=== PATIENT | female | born 1945 | race Caucasian/White ===

== ENCOUNTER → 2018-03-04 10:34 | Outpatient (CLI) | payer MEDICARE, MEDICAID, SELFPAY ==
--- NOTE | 2018-03-04 10:42 | XR_ITS ---
XR chest 2V COMPARISON: PA and lateral chest 01/06/2017 HISTORY: Cough, generalized weakness TECHNIQUE: PA and lateral chest FINDINGS: Mild emphysematous changes seen with mild hyperinflation the lung stafford. There is no infiltrate and is no pleural fluid. Cardiac size is normal and the vascularity is normal. Again noted is a large calcified right pretracheal node. 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
[2018-03-04 11:39] LABS: Alanine Aminotransferase 23 U/L (12-78); Albumin Level 3.4 gm/dL (3.4-5.0); Albumin/Globulin Ratio 0.8 (1.1-1.8); Alkaline Phosphatase 110 U/L (46-116); Anion Gap 14.8 mEq/L (5-15); Aspartate Amino Transferase 23 U/L (15-37); Bilirubin,Total 0.6 mg/dL (0.2-1.0); Blood Urea Nitrogen 23 mg/dL (7-18); Calcium 9.4 mg/dL (8.5-10.1); Carbon Dioxide 25 mmol/L (21.0-32.0); Chloride 104 mmol/L (98-107); Creatinine,Serum 1.38 mg/dL (0.55-1.02); Estimated Glomerular Filt Rate 38 ml/min (>60); GFR (African American) 45 ML/MIN (>60); Globulin 4.1 gm/dl (1.3-3.2); Glucose 125 mg/dL (74-106); Potassium 3.8 mmoL/L (3.5-5.1); Sodium 140 mmol/L (136-145); Total Protein,Serum 7.5 gm/dL (6.4-8.2)
[2018-03-04 11:53] LABS: Basophils % 0.6 % (0.1-2.0); Eosinophils % 0.6 % (0.1-12.0); Lymphocytes # 1.1 K/mm3 (0.7-4.5); Lymphocytes % 18.1 K/mm3 (10-50); Mean Corpuscular HGB Conc 30.2 g/dL (31.8-35.4); Mean Corpuscular Hemoglobin 22.2 pg (27.0-31.2); Mean Corpuscular Volume 73.5 fl (81-99); Mean Platelet Volume 8.9 fl (7.4-10.4); Monocytes # 0.4 K/mm3 (0.1-1.0); Neutrophils # 4.3 K/mm3 (1.8-7.8); Neutrophils % 73.7 % (37.0-80.0); Platelet Count 282 K/mm3 (142-424); Red Blood Count 4.49 M/mm3 (4.20-5.40); White Blood Count 5.8 K/mm3 (4.8-10.8)
[2018-03-04 18:01] LABS: Reticulocyte % (Auto) 1.5 % (0.9-3.2)
[2018-03-06 09:49] LABS: Iron 19 ug/dL (27-139); UIBC 392 ug/dL (118-369)
[2018-03-08 06:15] LABS: Iron Saturation 5 % (15-55)
== END ==
PROVIDERS: PCP Internal Medicine; Visit Provider Internal Medicine
DX: R05 Cough (principal); D64.9 Anemia, unspecified; R09.89 Other specified symptoms and signs involving the circulatory and respiratory systems; R53.1 Weakness
CPT/HCPCS: 36415; 71046; 80053; 83550; 85025; 85044

== ENCOUNTER → 2018-03-28 11:09 | Outpatient (POV) | payer MEDICARE, SELFPAY | PROVIDERS: Visit Provider Nurse Practitioner Acute Care | DX: Z00.00 Encounter for general adult medical examination without abnormal findings (principal) ==

== ENCOUNTER → 2018-04-02 21:20 | Outpatient (CLI) | payer MEDICARE, SELFPAY ==
[2018-04-20 15:14] LABS: Occult Blood,Stool Negative (Negative)
== END ==
PROVIDERS: Visit Provider Nurse Practitioner Acute Care
DX: D64.9 Anemia, unspecified (principal)
CPT/HCPCS: 82272; G0328

== ENCOUNTER → 2018-04-03 19:00 | Outpatient (CLI) | payer MEDICARE, SELFPAY ==
[2018-04-20 15:14] LABS: Occult Blood,Stool Negative (Negative)
== END ==
PROVIDERS: Visit Provider Nurse Practitioner Acute Care
DX: D64.9 Anemia, unspecified (principal)
CPT/HCPCS: 82272; G0328

== ENCOUNTER → 2018-04-05 08:49 | Outpatient (CLI) | payer MEDICARE, MEDICAID, SELFPAY ==
[2018-04-20 15:14] LABS: Occult Blood,Stool Negative (Negative)
== END ==
PROVIDERS: Visit Provider Nurse Practitioner Acute Care
DX: D64.9 Anemia, unspecified (principal)
CPT/HCPCS: 82272; G0328

== ENCOUNTER → 2018-05-30 10:26 | Outpatient (CLI) | payer MEDICARE, MEDICAID, SELFPAY ==
[2018-05-30 10:52] LABS: Basophils # 0.1 K/mm3 (0-0.2); Basophils % 1.2 % (0.1-2.0); Eosinophils # 0.1 K/mm3 (0.0-0.4); Eosinophils % 1.5 % (0.1-12.0); Hematocrit 39.8 % (37.0-47.0); Hemoglobin 11.9 g/dL (12.2-16.2); Lymphocytes # 2.2 K/mm3 (0.7-4.5); Lymphocytes % 38.2 K/mm3 (10-50); Mean Corpuscular HGB Conc 29.8 g/dL (31.8-35.4); Mean Corpuscular Hemoglobin 26.1 pg (27.0-31.2); Mean Corpuscular Volume 87.8 fl (81-99); Mean Platelet Volume 9.5 fl (7.4-10.4); Monocytes # 0.4 K/mm3 (0.1-1.0); Monocytes % 7.3 % (1.7-9.3); Neutrophils % 51.8 % (37.0-80.0); Platelet Count 199 K/mm3 (142-424); Red Blood Count 4.54 M/mm3 (4.20-5.40); Red Cell Distribution Width 21.9 % (11.5-17.5); Reticulocyte % (Auto) 1.2 % (0.9-3.2); White Blood Count 5.9 K/mm3 (4.8-10.8)
== END ==
PROVIDERS: Visit Provider Internal Medicine
DX: D50.9 Iron deficiency anemia, unspecified (principal); I10 Essential (primary) hypertension; I25.10 Atherosclerotic heart disease of native coronary artery without angina pectoris
CPT/HCPCS: 36415; 85025; 85044

== ENCOUNTER → 2018-08-30 11:09 | Outpatient (CLI) | payer MEDICARE, MEDICAID, SELFPAY ==
[2018-08-30 12:04] LABS: Basophils # 0.1 K/mm3 (0-0.2); Eosinophils # 0.2 K/mm3 (0.0-0.4); Eosinophils % 2.6 % (0.1-12.0); Lymphocytes # 2.3 K/mm3 (0.7-4.5); Lymphocytes % 38.3 K/mm3 (10-50); Mean Corpuscular Hemoglobin 30.6 pg (27.0-31.2); Mean Corpuscular Volume 98.5 fl (81-99); Mean Platelet Volume 9.2 fl (7.4-10.4); Monocytes # 0.4 K/mm3 (0.1-1.0); Monocytes % 5.8 % (1.7-9.3); Neutrophils # 3.1 K/mm3 (1.8-7.8); Neutrophils % 52.2 % (37.0-80.0); Platelet Count 204 K/mm3 (142-424); Red Blood Count 4.57 M/mm3 (4.20-5.40)
[2018-08-30 12:25] LABS: Alanine Aminotransferase 22 U/L (12-78); Albumin Level 3.6 gm/dL (3.4-5.0); Albumin/Globulin Ratio 1.3 (1.1-1.8); Alkaline Phosphatase 100 U/L (46-116); Anion Gap 12.3 mEq/L (5-15); Aspartate Amino Transferase 18 U/L (15-37); Bilirubin,Total 0.6 mg/dL (0.2-1.0); Blood Urea Nitrogen 25 mg/dL (7-18); Carbon Dioxide 28 mmol/L (21.0-32.0); Chloride 105 mmol/L (98-107); Chol/HDL Ratio 1.9 (1-3.5); Cholesterol 127 mg/dL (140-200); Creatinine,Serum 1.14 mg/dL (0.55-1.02); Estimated Glomerular Filt Rate 47 ml/min (>60); GFR (African American) 57 ML/MIN (>60); Globulin 2.8 gm/dl (1.3-3.2); Glucose 104 mg/dL (74-106); HDL Cholesterol 67 mg/dL (29-89); LDL Cholesterol 40 mg/dL (0-130); Potassium 4.3 mmoL/L (3.5-5.1); Sodium 141 mmol/L (136-145); Total Protein,Serum 6.4 gm/dL (6.4-8.2); Triglycerides 101 mg/dL (30-200); VLDL Cholesterol 20 mg/dL (0-40)
== END ==
PROVIDERS: PCP Internal Medicine; Visit Provider Internal Medicine
DX: D50.9 Iron deficiency anemia, unspecified (principal); I25.10 Atherosclerotic heart disease of native coronary artery without angina pectoris; I73.9 Peripheral vascular disease, unspecified
CPT/HCPCS: 36415; 80053; 80061; 85025

== ENCOUNTER → 2018-12-07 11:22 | Outpatient (CLI) | payer MEDICARE, MEDICAID, SELFPAY ==
[2018-12-07 12:12] LABS: Basophils # 0.1 K/mm3 (0-0.2); Basophils % 0.8 % (0.1-2.0); Eosinophils # 0.1 K/mm3 (0.0-0.4); Eosinophils % 1.2 % (0.1-12.0); Hematocrit 41.9 % (37.0-47.0); Hemoglobin 13.2 g/dL (12.2-16.2); Lymphocytes # 2.5 K/mm3 (0.7-4.5); Mean Corpuscular HGB Conc 31.4 g/dL (31.8-35.4); Mean Corpuscular Hemoglobin 32.6 pg (27.0-31.2); Mean Corpuscular Volume 103.7 fl (81-99); Mean Platelet Volume 9.4 fl (7.4-10.4); Monocytes # 0.4 K/mm3 (0.1-1.0); Monocytes % 4.6 % (1.7-9.3); Neutrophils # 4.6 K/mm3 (1.8-7.8); Neutrophils % 60.5 % (37.0-80.0); Platelet Count 224 K/mm3 (142-424); Red Blood Count 4.04 M/mm3 (4.20-5.40); White Blood Count 7.7 K/mm3 (4.8-10.8)
[2018-12-07 12:21] LABS: Blood Urea Nitrogen 45 mg/dL (7-18); Carbon Dioxide 27 mmol/L (21.0-32.0); Chloride 102 mmol/L (98-107); Creatinine,Serum 1.63 mg/dL (0.55-1.02); Sodium 139 mmol/L (136-145)
[2018-12-07 12:22] LABS: Estimated Glomerular Filt Rate 31 ml/min (>60); GFR (African American) 37 ML/MIN (>60); Glucose 110 mg/dL (74-106)
== END ==
PROVIDERS: Visit Provider Internal Medicine
DX: D50.9 Iron deficiency anemia, unspecified (principal); K92.1 Melena
CPT/HCPCS: 36415; 80048; 85025

== ENCOUNTER → 2018-12-30 11:12 | Outpatient (CLI) | payer MEDICARE, MEDICAID, SELFPAY ==
[2018-12-30 12:02] LABS: Basophils # 0.1 K/mm3 (0-0.2); Basophils % 1.4 % (0.1-2.0); Eosinophils # 0.1 K/mm3 (0.0-0.4); Eosinophils % 2.6 % (0.1-12.0); Hematocrit 44.6 % (37.0-47.0); Hemoglobin 14.3 g/dL (12.2-16.2); Lymphocytes # 1.8 K/mm3 (0.7-4.5); Lymphocytes % 33.5 % (10-50); Mean Corpuscular HGB Conc 32.1 g/dL (31.8-35.4); Mean Corpuscular Hemoglobin 32.7 pg (27.0-31.2); Mean Corpuscular Volume 101.9 fl (81-99); Monocytes # 0.3 K/mm3 (0.1-1.0); Monocytes % 5.8 % (1.7-9.3); Neutrophils # 3.1 K/mm3 (1.8-7.8); Neutrophils % 56.7 % (37.0-80.0); Platelet Count 209 K/mm3 (142-424); Red Blood Count 4.38 M/mm3 (4.20-5.40); Reticulocyte % (Auto) 0.4 % (0.9-3.2); White Blood Count 5.4 K/mm3 (4.8-10.8)
[2018-12-30 12:45] LABS: Alanine Aminotransferase 21 U/L (12-78); Albumin Level 3.8 gm/dL (3.4-5.0); Albumin/Globulin Ratio 1.2 (1.1-1.8); Alkaline Phosphatase 100 U/L (46-116); Anion Gap 13.2 mEq/L (5-15); Aspartate Amino Transferase 15 U/L (15-37); Bilirubin,Total 0.5 mg/dL (0.2-1.0); Blood Urea Nitrogen 21 mg/dL (7-18); Calcium 9.2 mg/dL (8.5-10.1); Carbon Dioxide 29 mmol/L (21.0-32.0); Chloride 105 mmol/L (98-107); Creatinine,Serum 1.18 mg/dL (0.55-1.02); Estimated Glomerular Filt Rate 45 ml/min (>60); GFR (African American) 54 ML/MIN (>60); Globulin 3.2 gm/dl (1.3-3.2); Glucose 106 mg/dL (74-106); Potassium 4.2 mmoL/L (3.5-5.1); Sodium 143 mmol/L (136-145)
[2019-01-02 08:36] LABS: Folate >20.0 ng/mL (>3.0)
[2019-01-02 08:38] LABS: Vitamin B12 468 pg/mL (232-1245)
== END ==
PROVIDERS: Visit Provider Internal Medicine
DX: D50.9 Iron deficiency anemia, unspecified (principal); D75.89 Other specified diseases of blood and blood-forming organs
CPT/HCPCS: 36415; 80053; 82607; 82746; 85025; 85044

== ENCOUNTER → 2020-06-05 08:48 | Outpatient (CLI) | payer MEDICARE, OTHER, SELFPAY ==
--- NOTE | 2020-06-05 09:03 | US_ITS ---
PROCEDURE: US ABDOMEN LIMITED CLINICAL INDICATION: RUQ PAIN COMPARISON: ABDPELW/O CT ABD PELVIS W/O CONTRAST from 11/24/2015 FINDINGS: PANCREAS: Unremarkable. No obvious mass or abnormal fluid collection. No ductal dilatation LIVER: No focal liver lesions demonstrated. Homogeneous echogenicity. No intrahepatic biliary ductal dilatation evident. There is appropriate direction of blood flow within a non dilated portal vein RIGHT KIDNEY: There is atrophy of the right kidney. No hydronephrosis. There is a 7 mm cyst along the upper pole of the right kidney GALLBLADDER: Status post cholecystectomy. Common bile duct is normal at 5 mm. IMPRESSION: Prior cholecystectomy. Atrophy of the right kidney Dictated by: Alfred Bailey MD 06/05/2020 14:24 Electronically signed by Alfred Bailey MD in [place] 06/05/2020 14:24
== END ==
PROVIDERS: PCP Internal Medicine; Visit Provider Internal Medicine
DX: R10.11 Right upper quadrant pain (principal)
CPT/HCPCS: 76705

== ENCOUNTER 2020-08-29 13:13 | Inpatient (IN) | payer MEDICARE, MEDICAID, SELFPAY ==
[2020-08-29] VITALS (7 sets, daily range): BP systolic 105–150; BP diastolic 46–70; PULSE 52–64; RESP 16–18; TEMP 36.9; O2SAT 91–98; BMI 24.3
--- NOTE | 2020-08-29 13:35 | PC.NURSE ---
unable to obtain pedal pulse with palp or doppler
--- NOTE | 2020-08-29 13:47 | CT_ITS ---
Procedure: CT ANGIO LE BI CLINICAL HISTORY: cold foot, hx of fem artery graft COMPARISON: No exams were available for comparison TECHNIQUE: IV Contrast: 120 ml Optiray 350 Axial images obtained with sagittal and coronal reformats. All CT scans at the facility use one or more dose reduction, viz: automated exposure control, ma/kV adjustment per patient size (including targeted exams where dose is matched to indication, i.e. head), or iterative reconstruction technique. FINDINGS: Abdominal aorta: Extensive atheromatous changes are present involving the abdominal aorta with irregular calcific plaque throughout and also with with involvement of the iliac vessels. 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 There is severe atheromatous change the left renal artery with 50 percent stenosis of the proximal mid aspect. There is occlusion of the right renal artery proximally with an atrophic right kidney. Dilatation of the abdominal aorta at 2.1 cm. Severe atheromatous changes involve the iliac vessels on both sides with approximately 60 stenosis of the mid aspect of the right common iliac, 40 stenosis of the proximal right external iliac artery,. There is a right fem-pop graft. The graft is occluded proximally within the right groin region. The profundus femora is patent. The lummi SFA is occluded as well on the right. The graft does not reconstitute. The trifurcation vessels in the calf reconstitute proximally and are very small with extensive calcific plaque. The peroneal artery does appear to be reconstitute distally within the right calf. Extensive atherosclerotic calcification is noted in the left iliac vessels and in the left SFA. There is long segment moderate narrowing involving the mid SFA on the left of 50 percent. Segmental areas of stenosis is present involving the course of the SFA. 40 percent stenosis involves the mid popliteal artery on the left. The peroneal and posterior tibial arteries are patent to the ankle on the left. Incidental findings include prior cholecystectomy with biliary ectasia, atrophic right kidney, left renal cyst, mild ductal dilatation of the pancreas with moderate dilatation of the biliary tree. MRCP may provide further evaluation if clinically warranted. There is a mild amount of retained colonic feces. There are degenerative changes of the hips. Degenerative changes noted of the lumbar spine. There are cystic changes in the subcortical region of the talus medially. IMPRESSION: 1. Occluded right fem-pop graft with occluded lummi right SFA. There is minimal runoff to the right lower extremity with reconstitution of small and atheromatous trifurcation vessels. The peroneal artery appears to be patent to the ankle. Cannot determine patency of other 2 calf vessels due to the extensive calcific plaque. 2. 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 3. Other nonacute findings as described above. Dictated by: Alfred Bailey MD 08/29/2020 15:23 Alfred Bailey MD in [place] 08/29/2020 15:23
[2020-08-29 13:48] LABS: Basophils # 0.1 K/mm3 (0-0.2); Basophils % 1.2 % (0.1-2.0); Eosinophils # 0.2 K/mm3 (0.0-0.4); Eosinophils % 2.5 % (0.1-12.0); Lymphocytes # 1.8 K/mm3 (0.7-4.5); Mean Corpuscular HGB Conc 31.8 g/dL (31.8-35.4); Mean Corpuscular Hemoglobin 31.6 pg (27.0-31.2); Mean Corpuscular Volume 99.4 fl (81-99); Mean Platelet Volume 9.7 fl (7.4-10.4); Monocytes # 0.3 K/mm3 (0.1-1.0); Monocytes % 5.4 % (1.7-9.3); Neutrophils # 3.6 K/mm3 (1.8-7.8); Neutrophils % 60.9 % (37.0-80.0); Platelet Count 223 K/mm3 (142-424); Red Blood Count 4.12 M/mm3 (4.20-5.40); Red Cell Distribution Width 13.9 % (11.5-17.5); White Blood Count 5.9 K/mm3 (4.8-10.8)
--- NOTE | 2020-08-29 13:48 | HMH.EDGENADL ---
ED Disposition Clinical Impression: Obstruction of artery of right lower extremity Disposition: Xfer Other Condition on Discharge: Serious Referrals: Jackson Jimenez [Primary Care Provider] - Forms: Transfer Record - ED Time of Disposition: 15:37 - Critical Care Critical Care Time: Yes Attestation: On 08/29/20, the high probability of a clinically significant, sudden or life threatening deterioration of the following system(s) required my full and direct attention, intervention and personal management. The time I documented below is in addition to time spent performing reported procedures but includes the following listed in this critical care notation. Total Critical Care Time: 40 Vital system(s) involved:: Circulatory Failure, Metabolic Failure My critical care processes included: Assessment & monitoring of V/S, Initial and Re-exams, Coordinating Care, Medication Orders and management, Documentation Medical Decision Making - Medical Records Medical records reviewed: Yes: I reviewed the patient's medical records. - Apolinar Inquiry Pt receiving controlled substance: No Vital Signs: 08/29/20 13:13 08/29/20 16:03 Temperature 98.4 F Temperature Source Oral Pulse Rate [Radial] 64 62 Respiratory Rate 18 Blood Pressure [Right Arm] 140/61 150/65 H Blood Pressure Mean [Right Arm] 87 93 Blood Pressure Source [Right Arm] Automatic Cuff Blood Pressure Position [Right Arm] Sitting Sitting 02 Sat by Pulse Oximetry 98 96 Oxygen Delivery Method Room Air Room Air - Lab Data Lab Results 08/29/20 13:40: WBC 5.9, RBC 4.12 L, Hgb 13.0, Hct 41.0, MCV 99.4 H, MCH 31.6 H, MCHC 31.8, RDW 13.9, Plt Count 223, MPV 9.7, Neut % (Auto) 60.9, Lymph % (Auto) 30.0, [place] % (Auto) 5.4, Eos % (Auto) 2.5, Baso % (Auto) 1.2, Neut # (Auto) 3.6, Lymph # (Auto) 1.8, [place] # (Auto) 0.3, Eos # (Auto) 0.2, Baso # (Auto) 0.1 08/29/20 13:40: PT 11.1, INR 1.00, APTT 25.4 08/29/20 13:40: Sodium 138, Potassium 4.4, Chloride 103, Carbon Dioxide 28, Anion Gap 11.4, BUN 28 H, Creatinine 1.20 H, Estimated Creat Clear 42, Estimated GFR 44 L, Est GFR ( Amer) 53 L, Glucose 109 H, Calcium 9.6, Total Bilirubin 0.7, AST 31, ALT 12, Alkaline Phosphatase 94, Total Protein 6.7, Albumin 4.1, Globulin 2.6, Albumin/Globulin Ratio 1.6 08/29/20 14:15: Lactate 0.6 L Result diagrams: 08/29/20 13:40 08/29/20 13:40 Orders (Tests/Meds): ED MEDICATIONS Generic Name Dose Route Start Last Admin Trade Name Freq PRN Reason Stop Dose Admin Heparin Sodium/Dextrose 500 mls @ 23 mls/hr 08/29/20 15:45 08/29/20 16:16 Heparin 25,000 Units In D5w 500ml Premix IV 09/28/20 15:44 23 mls/hr .[id number] SATNAM Administration 1,150 UNITS/HR Miscellaneous 1 each 08/29/20 15:45 08/29/20 15:59 Heparin Drip Consult * 09/28/20 15:44 1 each CONSULT PHARMACY SATNAM Administration Discontinued Medications Generic Name Dose Route Start Last Admin Trade Name Freq PRN Reason Stop Dose Admin Heparin Sodium (Porcine) 5,000 unit 08/29/20 15:45 08/29/20 15:59 Heparin Sodium 5,000 Unit/Ml Vial IV 08/29/20 15:46 5,000 unit ONCE ONE Administration Hydromorphone HCl 1 mg 08/29/20 19:05 08/29/20 15:15 Hydromorphone 2mg/Ml Syringe IV 08/29/20 19:06 1 mg ONCE ONE Administration Ioversol 120 ml 08/29/20 14:33 08/29/20 14:34 Ioversol-350 (74%) 100ml Vial IV 08/29/20 14:34 120 ml ONCE ONE Administration Protocol Morphine Sulfate 4 mg 08/29/20 13:43 08/29/20 13:44 Morphine 4mg/Ml Syringe IV 08/29/20 13:44 4 mg ONCE ONE Administration Morphine Sulfate 4 mg 08/29/20 19:24 08/29/20 19:25 Morphine 4mg/Ml Syringe IV 08/29/20 19:25 4 mg ONCE ONE Administration Ondansetron HCl 4 mg 08/29/20 13:43 08/29/20 13:44 Ondansetron 4mg/2ml Vial IV 08/29/20 13:44 4 mg ONCE ONE Administration Sodium Chloride 10 ml 08/29/20 14:33 08/29/20 14:34 Sodium Chloride 0.9% 10ml Syr (Rad Only) IV 08/29/20 14:34 10 ml
[2020-08-29 13:56] LABS: Chloride 103 mmol/L (98-107); Potassium 4.4 mmoL/L (3.5-5.1); Sodium 138 mmol/L (136-145)
[2020-08-29 13:58] LABS: Alanine Aminotransferase 12 U/L (12-78); Alkaline Phosphatase 94 U/L (38-126); Anion Gap 11.4 mEq/L (5-15); Aspartate Amino Transferase 31 U/L (14-36); Bilirubin,Total 0.7 mg/dl (0.2-1.3); Blood Urea Nitrogen 28 mg/dl (7-17); Carbon Dioxide 28 mmol/L (22.0-30.0); Creatinine Clearance Estimated 42 mL/min (50-200); Estimated Glomerular Filt Rate 44 ml/min (>60); GFR (African American) 53 ML/MIN (>60)
[2020-08-29 13:59] LABS: Calcium 9.6 mg/dl (8.4-10.2); Glucose 109 mg/dl (74-100); Total Protein,Serum 6.7 g/dl (6.3-8.2)
[2020-08-29 14:16] LABS: Activated Partial Thrombo Time 25.4 seconds (23.6-34.0); Prothrombin Time 11.1 seconds (9.4-11.8)
[2020-08-29 14:30] LABS: Lactic Acid 0.6 mmol/L (0.7-2.1)
--- NOTE | 2020-08-29 15:34 | PC.NURSE ---
Calling [facility]
--- NOTE | 2020-08-29 15:37 | PC.NURSE ---
Transfer center advised she was going to try and get a hold of Dr. Rodriguez
--- NOTE | 2020-08-29 15:45 | PC.NURSE ---
speaking with Dr. Rodriguez
--- NOTE | 2020-08-29 16:04 | PC.NURSE ---
Dr Carrillo at [facility] returned call and is speaking with Dr Jimenes at this time.
--- NOTE | 2020-08-29 16:19 | PC.NURSE ---
Dr ballard accepted. Awaiting bed assignment at this time.
[2020-08-29 16:44] LABS: Albumin Level 4.1 g/dl (3.5-5.0); Albumin/Globulin Ratio 1.6 (1.1-1.8); Globulin 2.6 g/dL (1.3-3.2)
--- NOTE | 2020-08-29 16:48 | PC.NURSE ---
Spoke with transfer center. 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
--- NOTE | 2020-08-29 16:58 | ECG_ITS ---
APPROVED REPORT Exam: Resting ECG HR:63 bpm ECG Measurements Heart Rate 63 AXES AK 184 P 60 QRSd 82 QRS 46 QT 426 T 67 QTc 435 Conclusion Sinus rhythm with premature atrial complexes with aberrant conduction Otherwise normal ECG Electronically signed by : Marshall Mustafa, 08/30/2020 13:43:22
--- NOTE | 2020-08-29 17:48 | PC.NURSE ---
[facility] CALLED AND REPORTED THAT A BED ASSIGNMENT IS NOT GOING TO BE POSSIBLE TONIGHT AND THAT WE MAY WANT TO TRY A DIFFERENT HOSPITAL FOR TRANSFER
--- NOTE | 2020-08-29 22:16 | PC.NURSE ---
[facility] called and still dont have a bed assignment
--- NOTE | 2020-08-29 22:48 | PC.NURSE ---
This RN spoke with Balaji from pharmacy regarding Heparin gtt. APTT was 150.0. Orders given to hold gtt for 2 hours, then restart at 1000 units/hr. Redraw APTT 6 hours from restart. Heparin gtt held at 2243
[2020-08-30 00:44] LABS: Coronavirus 19 IgG Antibody Negative (Negative); Coronavirus 19 IgM Antibody Negative (Negative)
--- NOTE | 2020-08-30 00:46 | PC.NURSE ---
Report called to CHRISTIN Parker at this time.
--- NOTE | 2020-08-30 00:55 | PC.NURSE ---
Heparin restarted at 0050 @ 1000 units/hr.
[2020-08-30 01:10] VITALS: BP 120/51; PULSE 54; RESP 18; TEMP 36.6; O2SAT 94
--- NOTE | 2020-08-30 01:10 | PC.NURSE ---
patient up to floor via stretcher per CONCRETE POINTER and RN.
--- NOTE | 2020-08-30 01:27 | PC.ADMIT ---
[email or web address] [facility] Admission Note: The patient,Kallie Wheat,74 y/o, was given written information regarding hospital policies, unit procedures and contact persons. Patient's smoking status: Current every day smoker. Vital Signs - 8 hr 08/29/20 20:24 08/29/20 21:17 08/29/20 21:51 Pulse Rate [Radial] 56 L 64 52 L Respiratory Rate 16 18 18 Blood Pressure [Right Arm] 130/70 118/54 L 132/63 02 Sat by Pulse Oximetry 92 L 95 94 L 08/29/20 22:32 08/29/20 22:57 Pulse Rate [Radial] 54 L 54 L Respiratory Rate 18 18 Blood Pressure [Right Arm] 105/46 L 120/51 L 02 Sat by Pulse Oximetry 91 L 94 L
[2020-08-30 01:33] VITALS: BP 128/55; PULSE 59; RESP 18; TEMP 36.6; O2SAT 94; BMI 25.7
--- NOTE | 2020-08-30 04:38 | PC.NURSE ---
REPORTS DIZZINESS. HAS NOT C/O N/V/D OR PAIN THUS FAR. FAINT, THREADY R PEDAL PULSE. BILAT. FEET EQUAL IN STRENGTH AND MOVEMENT. R FOOT/TOES DISCOLORED AND COOL TO TOUCH. [id number]- [facility] CONTACTED THIS RN TO REPORT NO AVAILABLE BEDS AT THIS TIME.
[2020-08-30 05:50] VITALS: BP 119/57; PULSE 58; RESP 14; TEMP 36.4; O2SAT 95
[2020-08-30 06:48] LABS: Basophils # 0.1 K/mm3 (0-0.2); Basophils % 1.2 % (0.1-2.0); Eosinophils # 0.1 K/mm3 (0.0-0.4); Eosinophils % 1.9 % (0.1-12.0); Hematocrit 39.5 % (37.0-47.0); Hemoglobin 11.8 g/dL (12.2-16.2); Lymphocytes # 1.9 K/mm3 (0.7-4.5); Lymphocytes % 26.8 % (10-50); Mean Corpuscular Volume 99.9 fl (81-99); Mean Platelet Volume 9.2 fl (7.4-10.4); Monocytes # 0.4 K/mm3 (0.1-1.0); Monocytes % 5.2 % (1.7-9.3); Neutrophils # 4.7 K/mm3 (1.8-7.8); Platelet Count 206 K/mm3 (142-424); Red Blood Count 3.95 M/mm3 (4.20-5.40); Red Cell Distribution Width 13.8 % (11.5-17.5); White Blood Count 7.2 K/mm3 (4.8-10.8)
[2020-08-30 06:49] LABS: Chloride 103 mmol/L (98-107); Potassium 4.4 mmoL/L (3.5-5.1); Sodium 137 mmol/L (136-145)
[2020-08-30 06:52] LABS: Anion Gap 11.4 mEq/L (5-15); Blood Urea Nitrogen 28 mg/dl (7-17); Carbon Dioxide 27 mmol/L (22.0-30.0); Creatinine Clearance Estimated 43 mL/min (50-200); Estimated Glomerular Filt Rate 44 ml/min (>60); GFR (African American) 53 ML/MIN (>60)
[2020-08-30 06:53] LABS: Calcium 9.1 mg/dl (8.4-10.2); Glucose 102 mg/dl (74-100)
[2020-08-30 08:00] VITALS: BP 109/55; PULSE 74; RESP 18; TEMP 36.4; O2SAT 93
--- NOTE | 2020-08-30 08:09 | HMH.HPDC ---
<Alexa Chavira - Last Filed: 08/30/20 08:15> General - General Admission date:: 08/30/20 Discharge date: 08/30/20 *Admission Date: 08/29/20 *Chief complaint: RLE vascular ischemia *History of present illness: Ms. Wheat is a 74yo female with a history of CAD with history of stent placement, COPD, HTN, HLP, GERD, and PAD with history of right leg femoral popliteal graft procedure with Dr. Rodriguez at [facility] in [place]. She regularly sees Dr. Jimenez for her primary care. She presented to the [facility] ED yesterday for right lower extremity pain which had been progressive over the past week. CTA of the extremity showed an occluded fem pop graft. Consultation was made to Dr. Rodriguez at [facility] and the patient was admitted for observation pending bed availability at [facility]. This morning, she is feeling well. She denies any CP or SOB. She has been voiding qshift. She denies any GI upset and has been NPO overnight. She reports minimal RLE discomfort which has been well-controlled with prn medications and is eased when she is out of bed. She has a bed at [facility] and will be transferred. [facility] History I have reviewed the patient's past medical history: Yes Medical History: Reports:: Carotid Stenosis, Chronic Obstructive Pulmonary Disease (COPD), Coronary Artery Disease, Gastroesophageal Reflux Disease(GERD), Hyperlipidemia, Hypertension, Lung Disease (COPD), Peripheral Vascular Disease Denies:: Cancer, Diabetes Mellitus Type 1, Diabetes Mellitus Type 2, Internal Pacemaker, MRSA, Seizures *Have you ever received a pneumonia vaccine?: Yes *Have you received a flu vaccine this season?: No Other Medical History: Reports: Arthritis Laterality Cases: Right: Other (Vein stripping right thigh,Carotid surgery) Other Surgeries: Yes: Bariatric Surgery, Cardiac Catheterization, Coronary Stent, Hysterectomy-Total, Other. No: Pacemaker Amputation: No - *Social History Last grade of school completed: 7th or 8th Smoking Status: Current every day smoker Tobacco Type: cigarettes # Packs/Day (cigarettes): 1 Alcohol Intake: never *Occupational Status:: retired Housing: house Household Members: children *Travel in the last 8 weeks: None Family Hx:: Cancer Review of Systems - Constitutional Denies fatigue, Denies fever(s), Denies headache(s), Denies weakness - Eyes Denies change in vision - ENT Denies headache(s), Denies nasal congestion, Denies nasal discharge, Denies sore throat - *Cardiovascular Denies chest pain, Denies chest pain with activity, Denies shortness of breath, Denies shortness of breath with activity, Denies lightheadedness - *Respiratory Reports cough, Denies shortness of breath - *Gastrointestinal Denies abdominal pain, Denies change in bowel habits, Denies loose stools, Denies nausea, Denies vomiting - *Genitourinary Denies difficulty urinating - *Musculoskeletal Reports radiating pain into limb Comments: RLE pain x 1 week, eased with ambulation - *Neurologic Reports numbness (toes), Denies headache(s), Denies weakness - Hematologic/Lymphatic Denies enlarged lymph nodes Exam Vital signs and Labs for Last 24 Hours: Temp Pulse Resp BP Pulse Ox 97.6 F 58 L 14 119/57 L 95 08/30/20 05:50 08/30/20 05:50 08/30/20 05:50 08/30/20 05:50 08/30/20 05:50 Laboratory Results - last 24 hr 08/29/20 13:40: WBC 5.9, RBC 4.12 L, Hgb 13.0, Hct 41.0, MCV 99.4 H, MCH 31.6 H, MCHC 31.8, RDW 13.9, Plt Count 223, MPV 9.7, Neut % (Auto) 60.9, Lymph % (Auto) 30.0, [place] % (Auto) 5.4, Eos % (Auto) 2.5, Baso % (Auto) 1.2, Neut # (Auto) 3.6, Lymph # (Auto) 1.8, [place] # (Auto) 0.3, Eos # (Auto) 0.2, Baso # (Auto) 0.1 08/29/20 13:40: PT 11.1, INR 1.00, APTT 25.4 08/29/20 13:40: Sodium 138, Potassium 4.4, Chloride 103, Carbon Dioxide 28, Anion Gap 11.4, BUN 28 H, Creatinine 1.20 H, Estimated Creat Clear 42, Estimated GFR 44 L, Est GFR ( Amer) 53 L, Glucose 109 H, Calcium 9.6, Total Bilirubin 0.7, AST 31, ALT 12, Alkaline Phosphatase
--- NOTE | 2020-08-30 09:02 | PC.NURSE ---
PT'S PHARMACY CONTACTED. ULICES GALE REC COMPLETED AND INFORMATION FAXED TO ST TRAE GODOY RN, . REPORT CALLED TO CHRISTIN GODOY AT [phone]
--- NOTE | 2020-08-30 13:16 | HMH.PHAHEP ---
[facility] Pharmacy Heparin Dosing - Demographic Data Admission date:: 08/29/20 Date: 08/30/20 Time: 13:16 Allergies/Adverse Reactions: Allergies Allergy/AdvReac Type Severity Reaction Status Date / Time No Known Allergies Allergy Verified 05/09/18 12:00 Height: 1.6 m Weight: 65.7 kg - Indication Medication therapy:: Heparin Patient Problems: Current Active Problems Obstruction of artery of right lower extremity (Acute) HTN (hypertension) (Acute) GERD (gastroesophageal reflux disease) (Acute) Hyperlipidemia (Acute) CVA?: No Bleeding problem?: No Kidney disease?: No HI?: No Desired PTT range:: 50-70 seconds - Labs Anticoagulation Lab Results:: 08/29/20 08/30/20 13:40 06:05 Hgb 13.0 11.8 L Hct 41.0 39.5 Plt Count 223 206 - Monitoring Dose Monitor 1 Date: 08/29/20 Time: 13:40 PTT Result:: 25.4 Infusion Rate:: 1150 UNITS/HR = 23 ML/HR Comment:: BASELINE PTT 5,000 UNIT BOLUS GIVEN [id number] Dose Monitor 2 Date: 08/30/20 Time: 21:40 PTT Result:: 150.0 Infusion Rate:: 20 ML/HR Dose Monitor 3 Date: 08/30/20 Time: 06:05 PTT Result:: 76.0 Infusion Rate:: 19 ML/HR Comment:: [id number] - Core Measures Is INR > or = 2 at discharge?: No Most Recent Labs:: Laboratory Results - last 24 hr 08/29/20 13:40: WBC 5.9, RBC 4.12 L, Hgb 13.0, Hct 41.0, MCV 99.4 H, MCH 31.6 H, MCHC 31.8, RDW 13.9, Plt Count 223, MPV 9.7, Neut % (Auto) 60.9, Lymph % (Auto) 30.0, [place] % (Auto) 5.4, Eos % (Auto) 2.5, Baso % (Auto) 1.2, Neut # (Auto) 3.6, Lymph # (Auto) 1.8, [place] # (Auto) 0.3, Eos # (Auto) 0.2, Baso # (Auto) 0.1 08/29/20 13:40: PT 11.1, INR 1.00, APTT 25.4 08/29/20 13:40: Sodium 138, Potassium 4.4, Chloride 103, Carbon Dioxide 28, Anion Gap 11.4, BUN 28 H, Creatinine 1.20 H, Estimated Creat Clear 42, Estimated GFR 44 L, Est GFR ( Amer) 53 L, Glucose 109 H, Calcium 9.6, Total Bilirubin 0.7, AST 31, ALT 12, Alkaline Phosphatase 94, Total Protein 6.7, Albumin 4.1, Globulin 2.6, Albumin/Globulin Ratio 1.6 08/29/20 14:15: Lactate 0.6 L 08/29/20 21:40: APTT 150.0 H* D 08/30/20 00:00: SARS-CoV-2 IgG Ab (Rapid) Negative, SARS-CoV-2 IgM Ab (Rapid) Negative 08/30/20 06:05: WBC 7.2, RBC 3.95 L, Hgb 11.8 L, Hct 39.5, MCV 99.9 H, MCH 30.0, MCHC 30.0 L, RDW 13.8, Plt Count 206, MPV 9.2, Neut % (Auto) 65.0, Lymph % (Auto) 26.8, [place] % (Auto) 5.2, Eos % (Auto) 1.9, Baso % (Auto) 1.2, Neut # (Auto) 4.7, Lymph # (Auto) 1.9, [place] # (Auto) 0.4, Eos # (Auto) 0.1, Baso # (Auto) 0.1 08/30/20 06:05: Sodium 137, Potassium 4.4, Chloride 103, Carbon Dioxide 27, Anion Gap 11.4, BUN 28 H, Creatinine 1.20 H, Estimated Creat Clear 43, Estimated GFR 44 L, Est GFR ( Amer) 53 L, Glucose 102 H, Calcium 9.1 08/30/20 06:05: APTT 76.0 H* D If INR was < than 2.0 why was therapy stopped?: TRANSFERRED TO [facility] Were Heparin and Warfarin started on the same day?: No If not, why?: TRANSFERRED TO [facility], STILL ON HEPARIN DRIP
== END 2020-08-30 09:35 | disposition short-term general hospital (02) | DRG 300 ==
LOC: ER 17:03 → 2ND 08-30 01:54
PROVIDERS: Emergency Medicine; Admitting Provider Family Medicine; Emergency Provider Emergency Medicine; PCP Internal Medicine; Visit Provider Family Medicine
DX: I70.721 Atherosclerosis of other type of bypass graft(s) of the extremities with rest pain, right leg (principal); I70.92 Chronic total occlusion of artery of the extremities; Z72.0 Tobacco use; I10 Essential (primary) hypertension; J44.9 Chronic obstructive pulmonary disease, unspecified; Z79.01 Long term (current) use of anticoagulants; Z79.899 Other long term (current) drug therapy; I77.1 Stricture of artery; I70.1 Atherosclerosis of renal artery; I70.8 Atherosclerosis of other arteries
CPT/HCPCS: 36415; 73701; 80048; 80053; 83605; 85025; 85610; 85730; 86328; 93005; 96365; 96375; 96376; 99284; J2405; Q9967

== ENCOUNTER 2020-09-27 10:41 | Outpatient (CLI) | payer MEDICARE, MEDICAID, SELFPAY ==
[2020-09-27 10:46] VITALS: BMI 25.2
[2020-09-27 11:10] VITALS: BP 105/68; PULSE 86; RESP 18; TEMP 37.3
[2020-09-27 11:15] LABS: Basophils # 0.1 K/mm3 (0-0.2); Basophils % 0.9 % (0.1-2.0); Eosinophils # 0.1 K/mm3 (0.0-0.4); Eosinophils % 0.6 % (0.1-12.0); Hematocrit 29.1 % (37.0-47.0); Hemoglobin 8.9 g/dL (12.2-16.2); Lymphocytes # 1.5 K/mm3 (0.7-4.5); Lymphocytes % 16.6 % (10-50); Mean Corpuscular HGB Conc 30.7 g/dL (31.8-35.4); Mean Corpuscular Volume 97.7 fl (81-99); Mean Platelet Volume 8.5 fl (7.4-10.4); Monocytes # 0.5 K/mm3 (0.1-1.0); Monocytes % 5.4 % (1.7-9.3); Neutrophils % 76.4 % (37.0-80.0); Platelet Count 514 K/mm3 (142-424); Red Blood Count 2.98 M/mm3 (4.20-5.40); Red Cell Distribution Width 14.8 % (11.5-17.5); White Blood Count 9.1 K/mm3 (4.8-10.8)
[2020-09-27 11:35] LABS: Anion Gap 12.5 mEq/L (5-15); Blood Urea Nitrogen 28 mg/dl (7-17); Calcium 9.5 mg/dl (8.4-10.2); Carbon Dioxide 29 mmol/L (22.0-30.0); Chloride 99 mmol/L (98-107); Creatinine Clearance Estimated 38 mL/min (50-200); Estimated Glomerular Filt Rate 40 ml/min (>60); GFR (African American) 48 ML/MIN (>60); Glucose 115 mg/dl (74-100); Potassium 3.5 mmoL/L (3.5-5.1); Sodium 137 mmol/L (136-145)
[2020-09-27 12:10] VITALS: BP 136/59; PULSE 70; RESP 18
[2020-09-27 13:10] VITALS: BP 127/57; PULSE 70; RESP 18
[2020-09-27 14:10] VITALS: BP 111/51; PULSE 69; RESP 18
[2020-09-27 15:10] VITALS: BP 126/51; PULSE 73; RESP 16
== END 2020-09-27 15:25 | disposition home or self-care (01) ==
LOC: INF 10:42
PROVIDERS: PCP Internal Medicine; Visit Provider Internal Medicine
DX: K52.9 Noninfective gastroenteritis and colitis, unspecified (principal)
CPT/HCPCS: 80048; 85025; 96360; 96361; 96375; J2405

== ENCOUNTER 2020-10-06 17:04 | Inpatient (IN) | payer MEDICARE, MEDICAID, SELFPAY ==
[2020-10-06] VITALS (11 sets, daily range): BP systolic 101–218; BP diastolic 49–89; PULSE 63–86; RESP 16–17; TEMP 36.3–36.7; O2SAT 94–99; BMI 25.2; BMI 24.3
--- NOTE | 2020-10-06 | ECG_ITS ---
APPROVED REPORT Exam: Resting ECG HR:73 bpm ECG Measurements Heart Rate 73 AXES NM 176 P 71 QRSd 84 QRS 45 QT 394 T -7 QTc 434 Conclusion Sinus rhythm with premature atrial complexes with aberrant conduction Nonspecific ST and T wave abnormality Abnormal ECG Electronically signed by : Marshall Mustafa, 10/07/2020 21:08:08
--- NOTE | 2020-10-06 17:22 | HMH.EDGENADL ---
ED Disposition Condition on Discharge: Serious - Critical Care Critical Care Time: No <Yossi Torres - Last Filed: 10/06/20 21:02> <Navi Casanova - Last Filed: 10/06/20 22:13> Clinical Impression: Vomiting and diarrhea Abdominal pain Qualifiers: Abdominal location: upper abdomen, unspecified Qualified Code(s): R10.10 - Upper abdominal pain, unspecified Back pain Qualifiers: Back pain location: low back pain Chronicity: acute Back pain laterality: unspecified Sciatica presence: without sciatica Qualified Code(s): M54.5 - Low back pain Urinary tract infection Qualifiers: Urinary tract infection type: site unspecified Hematuria presence: without hematuria Qualified Code(s): N39.0 - Urinary tract infection, site not specified Disposition: Still a Patient Referrals: Jackson Jimenez [Primary Care Provider] - Attestation: On 10/06/20, the high probability of a clinically significant, sudden or life threatening deterioration of the following system(s) required my full and direct attention, intervention and personal management. The time I documented below is in addition to time spent performing reported procedures but includes the following listed in this critical care notation. Medical Decision Making - Medical Records Medical records reviewed: Yes: I reviewed the patient's medical records. MR Comment: Admitted on 08/30/2020 and transferred the same day to [facility] for arterial ischemia right lower extremity. She had a CT angiogram here which also did show occluded right renal artery, occluded celiac artery, severe stenosis SMA. - Apolinar Inquiry Pt receiving controlled substance: Yes Apolinar was queried for this patient: No Reason not queried -: Emergent pt cond-no time Risks and benefits of using a controlled substance: were not discussed with pt by me - Lab Data Result diagrams: 10/06/20 17:25 10/06/20 17:25 - Physician Consults Physician Consulted: Cedrick Time: 20:45 Reason -: Pt condition Comment/Response: CT scan is pending. I apprised him of the patient's current status and work-up results. Awaiting CT results to see if she has mesenteric ischemia as is suspected from history. <Yossi Torres - Last Filed: 10/06/20 21:02> - Lab Data Result diagrams: 10/06/20 17:25 11/15/20 17:25 <Navi Casanova - Last Filed: 10/06/20 22:13> Vital Signs: 10/06/20 17:07 10/06/20 17:57 10/06/20 19:00 Temperature 97.4 F L Temperature Source Oral Pulse Rate [Left Radial] 69 67 63 Respiratory Rate 16 17 Blood Pressure [Right Arm] 101/51 L 173/63 H 141/51 H Blood Pressure Mean [Right Arm] 67 99 81 Blood Pressure Source [Right Arm] Automatic Cuff Automatic Cuff Automatic Cuff Blood Pressure Position [Right Arm] Sitting Sitting Supine 02 Sat by Pulse Oximetry 96 94 L 98 Oxygen Delivery Method Room Air Room Air Room Air 10/06/20 19:30 10/06/20 20:30 Temperature Temperature Source Pulse Rate [Left Radial] 63 86 Respiratory Rate 17 17 Blood Pressure [Right Arm] 134/49 L 218/89 H Blood Pressure Mean [Right Arm] 77 132 Blood Pressure Source [Right Arm] Automatic Cuff Automatic Cuff Blood Pressure Position [Right Arm] Supine Supine 02 Sat by Pulse Oximetry 97 97 Oxygen Delivery Method Room Air Room Air - Lab Data Lab Results 10/06/20 17:25: WBC 12.5 H, RBC 3.37 L, Hgb 9.4 L, Hct 30.9 L, MCV 91.9, MCH 27.9, MCHC 30.3 L, RDW 15.2, Plt Count 468 H, MPV 9.2, Neut % (Auto) 80.1 H, Lymph % (Auto) 16.3, [place] % (Auto) 3.2, Eos % (Auto) 0.1, Baso % (Auto) 0.4, Neut # (Auto) 10.0 H, Lymph # (Auto) 2.0, [place] # (Auto) 0.4, Eos # (Auto) 0.0, Baso # (Auto) 0.1 10/06/20 17:25: Urine Color Yellow, Urine Appearance Clear, Urine pH 6.0, Ur Specific [place] 1.020, Urine Protein Negative, Urine Glucose (UA) Negative, Urine Ketones Negative, Urine Blood Negative, Urine Nitrate Negative, Urine Bilirubin Negative, Urine Urobilinogen 0.2, Ur Leukocyte Esterase Negative, Urine WBC 20-50 A, Urine Bacteria
[2020-10-06 17:46] LABS: Microscopic,Cath URINE MICROSCOPIC (MICROSCOPIC)
[2020-10-06 17:50] LABS: Basophils # 0.1 K/mm3 (0-0.2); Basophils % 0.4 % (0.1-2.0); Eosinophils % 0.1 % (0.1-12.0); Hematocrit 30.9 % (37.0-47.0); Hemoglobin 9.4 g/dL (12.2-16.2); Lymphocytes % 16.3 % (10-50); Mean Corpuscular HGB Conc 30.3 g/dL (31.8-35.4); Mean Corpuscular Hemoglobin 27.9 pg (27.0-31.2); Mean Corpuscular Volume 91.9 fl (81-99); Mean Platelet Volume 9.2 fl (7.4-10.4); Monocytes # 0.4 K/mm3 (0.1-1.0); Monocytes % 3.2 % (1.7-9.3); Neutrophils % 80.1 % (37.0-80.0); Platelet Count 468 K/mm3 (142-424); Red Blood Count 3.37 M/mm3 (4.20-5.40); Red Cell Distribution Width 15.2 % (11.5-17.5); White Blood Count 12.5 K/mm3 (4.8-10.8)
[2020-10-06 17:56] LABS: Appearance,Urine/Cath CLEAR (Clear); Bilirubin,Cath Negative (Negative); Blood, Urine/Cath Negative (Negative); Color,Urine/Cath YELLOW (Yellow); Glucose,Urine/Cath (UA) Negative (Negative); Ketones,Urine/Cath Negative (Negative); Leukocyte Esterase,Cath Negative (Negative); Nitrate,Cath Negative (Negative); Protein,Urine/Cath Negative (Negative); Urobilinogen,Cath 0.2 EU/dl (0.2)
[2020-10-06 17:58] LABS: Occult Blood,Stool Positive (Negative)
[2020-10-06 18:00] LABS: Bacteria,Urine/Cath 2+ /lpf; WBC,Urine/Cath 20-50 #/hpf (0-3)
[2020-10-06 18:02] LABS: Alanine Aminotransferase 24 U/L (12-78); Albumin Level 3.7 g/dl (3.5-5.0); Albumin/Globulin Ratio 1.4 (1.1-1.8); Alkaline Phosphatase 120 U/L (38-126); Amylase 82 U/L (30-110); Anion Gap 19.2 mEq/L (5-15); Aspartate Amino Transferase 27 U/L (14-36); Bilirubin,Total 0.5 mg/dl (0.2-1.3); Blood Urea Nitrogen 27 mg/dl (7-17); Calcium 9.6 mg/dl (8.4-10.2); Carbon Dioxide 22 mmol/L (22.0-30.0); Chloride 99 mmol/L (98-107); Creatinine Clearance Estimated 33 mL/min (50-200); Estimated Glomerular Filt Rate 34 ml/min (>60); GFR (African American) 41 ML/MIN (>60); Globulin 2.7 g/dL (1.3-3.2); Glucose 162 mg/dl (74-100); Lactic Acid 4.9 mmol/L (0.7-2.1); Lipase 146 U/L (23-300); Potassium 3.2 mmoL/L (3.5-5.1); Sodium 137 mmol/L (136-145); Total Protein,Serum 6.4 g/dl (6.3-8.2)
--- NOTE | 2020-10-06 18:02 | PC.NURSE ---
aware of lactic acid of 4.9
--- NOTE | 2020-10-06 18:08 | CT_ITS ---
Procedure: CT ANGIO ABDOMEN PELVIS CLINICAL HISTORY: abdominal pain, vascular disease Abdominal pain, vascular disease, diarrhea COMPARISON: CT ABDPELW/O CT ABD PELVIS W/O CONTRAST from 11/24/[address] ANGIO LE BI from 08/29/2020 TECHNIQUE: IV Contrast: 100ml Isovue 370 Axial images obtained with sagittal and coronal reformats. All CT scans at the facility use one or more dose reduction, viz: automated exposure control, ma/kV adjustment per patient size (including targeted exams where dose is matched to indication, i.e. head), or iterative reconstruction technique. FINDINGS: There is extensive atherosclerotic plaque in the abdominal aorta with moderate to severe aortic stenosis in the mid abdominal aorta at the L2 level. This is inferior to the superior mesenteric artery. It is difficult to calculate the degree of stenosis secondary to the dense calcific plaque and less than optimal luminal opacification. At least 75 percent narrowing suspected. Severe plaque is present at the origin of the celiac artery with occlusion of the celiac artery and poor reconstitution. Severe plaque is also present at the ostium of the SMA and in the mid aspect of the SMA. Extensive atherosclerotic plaque is present in the branch vessels the MARLIN is patent. The the splenic and hepatic arteries are not well opacified and may be filling via collaterals however that phase of contrast enhancement is not included on this exam. Arteriography may be needed for further evaluation. Severe plaque is present at the renal arteries with moderate to severe stenosis of the left renal artery. 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 Extensive plaque is present in the iliacs with multiple [id number] stenosis in the common iliac and right external iliac. There is severe stenosis due to calcific plaque in the proximal right external iliac artery mild plaque is present in the proximal left common iliac artery. Right fem-pop graft is present. There is mild dilatation of the proximal portion of the graft at 1.6 cm. There is occlusion of the proximal right SFA. Stenosis is present in the left femoral artery. There is a cluster of enhancing left pelvic varices and dilated left ovarian vein suggesting pelvic congestion syndrome. Prior cholecystectomy with biliary dilatation. The spleen has an unremarkable appearance. There is a heterogeneous enhancing left adrenal mass at 3.6 x 2 cm not significantly changed. There is diffuse pancreatic atrophy. There is diffuse right renal atrophy. Left renal cyst is present at 1.9 cm. There is diffuse coronary artery calcification. Fluid-filled loops of small bowel are present mildly distended measuring up to 3 cm with scattered air-fluid levels. There is mild enhancement of the sigmoid colon wall. There is a Lima catheter present. No free air is evident. Urinary bladder is contracted with a Lima catheter present. There is sclerosis of the SI joints. There are degenerative changes in the lumbar spine. IMPRESSION: 1. Prominent atherosclerotic plaque in the abdominal aorta with moderate to severe aortic stenosis 2. Extensive atherosclerotic plaque throughout the abdomen and pelvis with occlusion of the celiac artery, occlusion of right renal artery with severe stenosis of the proximal SMA and moderate stenosis of the proximal aspect of the left renal artery. 3. Fluid-filled loops of large and small bowel with some enhancement of the sigmoid colon wall suggesting enterocolitis. 4. Adrenal mass unchanged 5. Prior cholecystectomy with biliary ectasia Dictated by: Alfred Bailey MD 10/07/2020 10:19 Alfred Bailey MD in OV 09/22
[2020-10-06 18:15] LABS: Troponin I < 0.01 ng/ml (0.00-0.034)
[2020-10-06 19:27] LABS: Reflex Lactic Add Lactic Reflex
[2020-10-06 20:31] LABS: Coronavirus 19 IgG Antibody Negative (Negative); Coronavirus 19 IgM Antibody Negative (Negative)
[2020-10-06 21:34] LABS: Lactic Acid Follow Up (RFLX 1) 1.6 mmol/L (0.7-2.1)
[2020-10-06 21:51] LABS: Troponin I < 0.01 ng/ml (0.00-0.034)
--- NOTE | 2020-10-06 21:53 | PC.NURSE ---
Lizzie Philip MD at this time
--- NOTE | 2020-10-06 22:13 | PC.NURSE ---
Patient admitted observation to 209
--- NOTE | 2020-10-06 23:25 | PC.NURSE ---
patient up to floor via stretcher.
[2020-10-07] VITALS (20 sets, daily range): BP systolic 146–173; BP diastolic 62–90; PULSE 60–95; RESP 14–20; TEMP 36.7–37.1; O2SAT 90–99; BMI 24.3
--- NOTE | 2020-10-07 00:05 | PC.NURSE ---
Incision from surgery prior to present admission. 10cm in length
--- NOTE | 2020-10-07 03:52 | PC.NURSE ---
Pt admitted this shift. Pt has slept well since admission. Lung sounds remain clear and diminished. Pulses palpable but irregular. Cardiac monitoring continues to show multiple PVCs. Denies soa/pain at this time. No nausea/vomiting noted.
[2020-10-07 07:26] LABS: Basophils % 0.1 % (0.1-2.0); Hematocrit 27.9 % (37.0-47.0); Hemoglobin 8.6 g/dL (12.2-16.2); Lactic Acid 0.9 mmol/L (0.7-2.1); Lymphocytes # 1.1 K/mm3 (0.7-4.5); Lymphocytes % 3.8 % (10-50); Mean Corpuscular Hemoglobin 28.1 pg (27.0-31.2); Mean Corpuscular Volume 90.6 fl (81-99); Mean Platelet Volume 9.1 fl (7.4-10.4); Monocytes % 3.7 % (1.7-9.3); Neutrophils # 25.7 K/mm3 (1.8-7.8); Neutrophils % 92.4 % (37.0-80.0); Platelet Count 353 K/mm3 (142-424); Red Blood Count 3.07 M/mm3 (4.20-5.40); Red Cell Distribution Width 15.3 % (11.5-17.5); White Blood Count 27.8 K/mm3 (4.8-10.8)
[2020-10-07 07:29] LABS: Chloride 104 mmol/L (98-107); Sodium 139 mmol/L (136-145)
[2020-10-07 07:32] LABS: Blood Urea Nitrogen 28 mg/dl (7-17); Creatinine Clearance Estimated 47 mL/min (50-200); Estimated Glomerular Filt Rate 54 ml/min (>60); GFR (African American) 66 ML/MIN (>60)
[2020-10-07 07:33] LABS: Anion Gap 15.9 mEq/L (5-15); Carbon Dioxide 22 mmol/L (22.0-30.0); Glucose 103 mg/dl (74-100)
[2020-10-07 07:37] LABS: MANUAL DIFFERENTIAL MANUAL DIFFERENTIAL (MANUAL DIFF)
--- NOTE | 2020-10-07 07:48 | HMH.PHAVTE ---
[facility] Pharmacy VTE Monitoring - Patient Demographics Admission date: 10/07/20 Report Date: 10/07/20 Time: 07:49 Allergies/Adverse Reactions: Patient Allergies No Known Allergies Allergy (Verified 05/09/18 12:00) Height: 1.57 m Weight: 59.874 kg Patient Problems: Current Active Problems Abdominal pain (Acute) Vomiting and diarrhea (Acute) Back pain (Acute) Urinary tract infection (Acute) - VTE Risk Labs: VTE Related Lab Results Hgb 8.6 g/dL (12.2-16.2) L 10/07/20 06:14 Hct 27.9 % (37.0-47.0) L 10/07/20 06:14 Plt Count 353 K/mm3 (142-424) 10/07/20 06:14 BUN 27 mg/dl (7-17) H 10/06/20 17:25 Creatinine 1.50 mg/dl (0.52-1.04) H 10/06/20 17:25 Estimated Creat Clear 33 mL/min (50-200) 10/06/20 17:25 Was VTE Risk Assessment Performed: Yes VTE Score: 8 VTE Risk Level: Moderate Risk Clinical Trial Participant: No - Prophylaxis VTE Prophylaxis Ordered?: Yes Types of VTE Prophylaxis: IPCS Knee High
[2020-10-07 07:52] LABS: Potassium 2.9 mmoL/L (3.5-5.1)
--- NOTE | 2020-10-07 07:52 | HMH.HP ---
*Admission Date: 10/07/20 *Chief complaint: Left lower quadrant abdominal pain *History of present illness: he patient had revascularization surgery on her right lower extremity at [facility] 3 weeks ago for acute arterial ischemia. She developed vomiting and diarrhea, mid back and abdominal pain while in the hospital and it has never gone away. She has seen her primary care doctor and has been sent to this hospital on Wednesday 6 days ago for outpatient IV fluids. She was started on medication for urinary tract infection. She has not had fever. She denies blood in her diarrhea. She says her legs feel good since her surgery. Above note per emergency department. Patient had lower extremity arterial bypass with apparently excellent results, is scheduled for follow-up on for staple removal, has had no problems with this procedure but notes that she had low-grade abdominal pain even in the hospital at [facility] and this has accelerated since she is home with vomiting and diarrhea. Work-up in the ER noted, concerned about mesenteric ischemia but CT scan was more consistent with sigmoid colitis. Patient notes that she feels better this morning and feels thirsty and has much less nausea. [facility] History I have reviewed the patient's past medical history: Yes Medical History: Reports:: Carotid Stenosis, Chronic Obstructive Pulmonary Disease (COPD), Coronary Artery Disease, Deep Vein Thrombosis, Gastroesophageal Reflux Disease(GERD), Hyperlipidemia, Hypertension, Lung Disease (COPD), Peripheral Vascular Disease Denies:: Cancer, Diabetes Mellitus Type 1, Diabetes Mellitus Type 2, Internal Pacemaker, MRSA, Seizures *Have you ever received a pneumonia vaccine?: Yes *Have you received a flu vaccine this season?: No Other Medical History: Reports: Arthritis Laterality Cases: Right: Other Other Surgeries: Yes: Bariatric Surgery, Cardiac Catheterization, Coronary Stent, Hysterectomy-Total, Other. No: Pacemaker Amputation: No - *Social History Smoking Status: Former smoker Tobacco Type: cigarettes # Packs/Day (cigarettes): 2 Smoking End Date: 08/22/2020 Alcohol Intake: never *Occupational Status:: retired Housing: house Household Members: children *Travel in the last 8 weeks: None Family Hx:: Cancer Review of Systems - Review of Systems Review of systems:: pertinent systems reviewed and negative unless documented below Meds Home Medications Medication Instructions Recorded Confirmed Type Amlodipine Besylate [Amlodipine 10 mg PO DAILY 05/02/18 10/06/20 History 10mg Tab] Atorvastatin Calcium [Lipitor 80mg 80 mg PO HS 05/02/18 10/06/20 History Tab] Cholecalciferol (Vitamin D3) 50,000 unit PO DAILY 05/02/18 10/06/20 History [Vitamin D3 50,000 unit Cap] Lisinopril/Hydrochlorothiazide 1 tab PO DAILY 05/02/18 10/06/20 History [Lisinopril-Hctz 20-25 mg Tab] Metoprolol Succinate 25 mg PO DAILY 05/02/18 10/06/20 History Omeprazole [Omeprazole 20mg 40 mg PO DAILY 05/02/18 10/06/20 History Capsule] Aspirin [Adult Low Dose Aspirin EC] 81 mg PO DAILY 09/27/20 10/06/20 History Rivaroxaban [Xarelto 20mg Tablet*] 20 mg PO DAILY 09/27/20 10/06/20 History buPROPion HCL [Bupropion HCl Sr] 150 mg PO DAILY 09/27/20 10/06/20 History ondansetron HCL [Ondansetron 4mg 4 mg PO Q8HP PRN 09/27/20 10/06/20 History tab*] Allergies Allergy/AdvReac Type Severity Reaction Status Date / Time No Known Allergies Allergy Verified 05/09/18 12:00 Exam Vital signs and Labs for Last 24 Hours: Temp Pulse Resp BP Pulse Ox 98.6 F 84 16 169/78 H 98 10/07/20 03:57 10/07/20 03:57 10/07/20 03:57 10/07/20 03:57 10/07/20 03:57 Laboratory Results - last 24 hr 10/06/20 17:25: WBC 12.5 H, RBC 3.37 L, Hgb 9.4 L, Hct 30.9 L, MCV 91.9, MCH 27.9, MCHC 30.3 L, RDW 15.2, Plt Count 468 H, MPV 9.2, Neut % (Auto) 80.1 H, Lymph % (Auto) 16.3, [place] % (Auto) 3.2, Eos % (Auto) 0.1, Baso % (Auto) 0.4, Neut # (Auto) 10.
[2020-10-07 07:53] LABS: Calcium 8.6 mg/dl (8.4-10.2)
[2020-10-07 08:26] LABS: Anisocytosis 1+; Hypochromasia 1+; Lymphocytes % 14 % (10-50); Monocytes % 2 % (2-9); Neutrophils % 82 % (42-76); Platelet Estimate Normal; Total Cells Counted 100
[2020-10-07 12:23] LABS: Potassium 3.4 mmoL/L (3.5-5.1)
--- NOTE | 2020-10-07 12:46 | PC.NURSE ---
1238 - Pt down by bed for sigmoidoscopy at this time
--- NOTE | 2020-10-07 14:01 | HMH.PROC ---
[facility] Procedure Note Procedure Note:: Colonoscopy Procedure Report: Colonoscopy with cold biopsies and stool collection for PCR Endoscopist: Clarence Siddiqi II, MD Referring physician: Denys Philip MD Date of Procedure: 10/07/2020 Equipment: Olympus 180 variable stiffness pediatric colonoscope Sedation: MAC sedation Indication: Mrs. Wheat is a 74-year-old female who is admitted for nausea, vomiting and diarrhea. She also has had some abdominal pain. The patient did have acute arterial ischemia of the right lower extremity and did have revascularization surgery. She was sent to [facility] for rehydration. She developed more significant symptoms and pain. Her CAT scan showed some thickening of the sigmoid colon. Her white blood cell count jumped from 12,000 on admission to 28,000 today. The patient did have a panendoscopy with oh in April 2018. Her colonoscopy at that time did show a couple of benign colon polyps. The patient is Hemoccult positive. Procedure: Prior to the procedure, a history and physical exam was performed, and patient's medications and allergies were reviewed. The risks, benefits and alternatives of the sedation and procedure were discussed with the patient. All questions were answered and informed consent was obtained. The patient was brought to the procedure room. Patient identification and proposed procedure were verified by the physician and the nurse. The patient was placed in a left lateral decubitus position and the scope was passed under direct vision. Throughout the procedure, the patient's blood pressure, pulse, and oxygen saturations were monitored continuously. The colonoscopy was accomplished without difficulty. The patient tolerated the procedure well. Findings: On digital rectal examination there was normal rectal tone. There were no external hemorrhoids. The colonoscope was introduced through the anal canal to the rectum and advanced to the cecum. The ileocecal valve and appendiceal orifice were identified. The scope was advanced approximately 15 to 20 cm into the ileum. There was evidence of moderate to marked ileitis with mucosal edema, erythema and superficial ulceration. This was felt to be acute ileitis and cold biopsies were taken from the ileum. The scope was then withdrawn into the colon. There was some periappendiceal edema in the cecum and cold biopsies were obtained. There were a few scattered AVMs/angiodysplasias of the right colon. The remainder of the transverse, descending, sigmoid and rectum were grossly normal. There were no other mucosal abnormalities. Upon retroflexion within the rectum there were grade 1 internal hemorrhoids.The preparation was fair throughout. Liquid brown stool was obtained for PCR assay for gastrointestinal panel. Impression: 1. Moderate to marked acute/chronic ileitis?rule out self-limited (microbial) versus ischemic (SMA) 2. Right colonic angiodysplasia/AVMs Plan: I will check to PCR gastrointestinal panel. I would place the patient on Cipro and Flagyl until the panel is returned. If the PCR panel is negative and the histology shows more ischemic change, I would then consider an angiogram of the mesenteric arteries to determine whether there is evidence of some mesenteric atherosclerotic disease especially with her history of peripheral vascular atherosclerotic disease.
--- NOTE | 2020-10-07 14:07 | HMH.ANESCL ---
[facility] Anesthesia Checklist - Patient Identification Patient Identification: Arm Band, Verbal (Name & ) - Structural Data Admitted From: Inpatient Planned Operative Procedure/s: Flexible sigmoidoscopy Consent for Planned Operative Procedure(s) Verified: Yes Verified Documents: Surgical Consent, History and Physical - NPO Status Verified Time NPO: 00:00 - Chart Verification Results Verified: CBC, BMP - Additional verifications Anesthesia Reactions: No - Airway Assessment C-Spine Mobility Assessed: Yes TMJ Mobility Assessed: Yes Dentition: Edentulous - Neurological Assessment Level of Consciousness: Awake, Alert, Appropriate, Follows Commands Hx Seizures: No Numbness or tingling in extremities: No - Anesthesia Plan Anesthesia Risk discussed: Yes Anesthesia Plan: Verified ASA Class: III (E) Anesthesia Type: MAC [facility] History I have reviewed the patient's past medical history: Yes Medical History: Reports:: Carotid Stenosis, Chronic Obstructive Pulmonary Disease (COPD), Coronary Artery Disease, Deep Vein Thrombosis, Gastroesophageal Reflux Disease(GERD), Hyperlipidemia, Hypertension, Lung Disease (COPD), Peripheral Vascular Disease Denies:: Cancer, Diabetes Mellitus Type 1, Diabetes Mellitus Type 2, Internal Pacemaker, MRSA, Seizures *Have you ever received a pneumonia vaccine?: Yes *Have you received a flu vaccine this season?: No Other Medical History: Reports: Arthritis Anesthesia experience/problems:: none Laterality Cases: Right: Other Other Surgeries: Yes: Bariatric Surgery, Cardiac Catheterization, Coronary Stent, Hysterectomy-Total, Other. No: Pacemaker Amputation: No - *Social History Smoking Status: Former smoker Tobacco Type: cigarettes # Packs/Day (cigarettes): 2 Smoking End Date: 08/22/2020 Alcohol Intake: never Substance Use Type: denies use *Occupational Status:: retired Housing: house Household Members: children *Travel in the last 8 weeks: None Family Hx:: Cancer
[2020-10-07 16:15] LABS: Adenovirus F 40/41, stool Not Detected (NotDetected); Astrovirus Not Detected (NotDetected); Clostridium Difficile A/B, PCR Not Detected (NotDetected); Cryptosporidium Not Detected (NotDetected); Cyclospora Cayetanesis Not Detected (NotDetected); Entamoeba histolytica Not Detected (NotDetected); Enteroaggregative E coli Not Detected (NotDetected); Enteropathogenic E coli Not Detected (NotDetected); Enterotoxigenic E coli Not Detected (NotDetected); Giardia lamblia Not Detected (NotDetected); Norovirus Not Detected (NotDetected); Plesimonas Shigalloides, PCR Not Detected (NotDetected); Rotavirus A Not Detected (NotDetected); Salmonella, PCR Not Detected (NotDetected); Sapovirus Not Detected (NotDetected); Shiga-like toxin E coli Not Detected (NotDetected); Shigella Enterovasive E coli Not Detected (NotDetected); Vibrio Cholerae Not Detected (NotDetected); Vibrio, PCR Not Detected (NotDetected); Yersinia Entercolitica, PCR Not Detected (NotDetected)
--- NOTE | 2020-10-07 20:09 | PC.NURSE ---
Pt has slept since arriving back to floor. No complaints voiced. No BM since colonoscopy performed. Remains on room air. Denies nausea. Call carmichael w/in reach.
[2020-10-08] VITALS (11 sets, daily range): BP systolic 132–168; BP diastolic 66–75; PULSE 78–100; RESP 14–18; TEMP 36.6–37.3; O2SAT 95–99; BMI 25.2
--- NOTE | 2020-10-08 04:20 | PC.NURSE ---
Pt is A&Ox4 and pt has been sleeping well during the night. Pt has c/o lower ABD pain 1x, medicated per MAR with good relief. Lungs CTA and SaO2 > 96% this shift. AND is soft, tender to palpation, and hypoactive BS noted. Pt has not has BM this shift. [place] to [employer] and no redness or d/c noted. Pulses 2+. No edema present. NSR/Sinus tach on tele. Lima cath in place draining bright ylw urine. Call light within reach and will continue to monitor.
[2020-10-08 07:27] LABS: Chloride 105 mmol/L (98-107); Potassium 3.3 mmoL/L (3.5-5.1); Sodium 140 mmol/L (136-145)
[2020-10-08 07:30] LABS: Alanine Aminotransferase 8 U/L (12-78); Albumin Level 2.8 g/dl (3.5-5.0); Albumin/Globulin Ratio 1.2 (1.1-1.8); Alkaline Phosphatase 87 U/L (38-126); Anion Gap 9.3 mEq/L (5-15); Aspartate Amino Transferase 23 U/L (14-36); Bilirubin,Total 0.4 mg/dl (0.2-1.3); Blood Urea Nitrogen 21 mg/dl (7-17); Carbon Dioxide 29 mmol/L (22.0-30.0); Creatinine Clearance Estimated 49 mL/min (50-200); Estimated Glomerular Filt Rate 70 ml/min (>60); GFR (African American) 85 ML/MIN (>60); Globulin 2.4 g/dL (1.3-3.2); Total Protein,Serum 5.2 g/dl (6.3-8.2)
[2020-10-08 07:31] LABS: Calcium 8.9 mg/dl (8.4-10.2); Glucose 101 mg/dl (74-100)
[2020-10-08 07:34] LABS: Basophils % 0.1 % (0.1-2.0); Hematocrit 24.4 % (37.0-47.0); Lymphocytes # 1.3 K/mm3 (0.7-4.5); Lymphocytes % 5.6 % (10-50); Mean Corpuscular HGB Conc 30.3 g/dL (31.8-35.4); Mean Corpuscular Hemoglobin 28.3 pg (27.0-31.2); Mean Corpuscular Volume 93.2 fl (81-99); Mean Platelet Volume 8.9 fl (7.4-10.4); Monocytes % 4.4 % (1.7-9.3); Neutrophils # 19.9 K/mm3 (1.8-7.8); Neutrophils % 89.9 % (37.0-80.0); Platelet Count 366 K/mm3 (142-424); Red Blood Count 2.62 M/mm3 (4.20-5.40); Red Cell Distribution Width 15.7 % (11.5-17.5); White Blood Count 22.1 K/mm3 (4.8-10.8)
[2020-10-08 07:51] LABS: Hemoglobin 7.4 g/dL (12.2-16.2)
[2020-10-08 07:52] LABS: MANUAL DIFFERENTIAL MANUAL DIFFERENTIAL (MANUAL DIFF)
--- NOTE | 2020-10-08 08:05 | PC.NURSE ---
Notified Dr Philip of results; He is to place order for PRBC's
--- NOTE | 2020-10-08 09:05 | HMH.ACPN2 ---
Internal Medicine - PN: Subj *Date: 10/08/20 *Time: 08:35 Interval history: 74-year-old female with significant arterial disease. Did well overnight, feels better today per her report. Tolerating p.o. fluids. No nausea overnight. Afebrile. Abdominal pain somewhat improved. No dysuria, flank pain, headache, shortness of breath, chest pain. Overall feeling better. Reviewed labs from this morning, urine culture growing E. coli. Hemoglobin low. Necessitating transfusion. Exam Vital signs and Labs for Last 24 Hours: Temp Pulse Resp BP Pulse Ox 98.4 F 95 H 17 149/75 H 98 10/08/20 08:00 10/08/20 08:00 10/08/20 08:00 10/08/20 08:00 10/08/20 08:00 Laboratory Results - last 24 hr 10/06/20 17:25: Lactate 4.9 H 10/07/20 12:15: Potassium 3.4 L 10/08/20 06:35: WBC 22.1 H*, RBC 2.62 L, Hgb 7.4 L*, Hct 24.4 L, MCV 93.2, MCH 28.3, MCHC 30.3 L, RDW 15.7, Plt Count 366, MPV 8.9, Neut % (Auto) 89.9 H, Lymph % (Auto) 5.6 L, [place] % (Auto) 4.4, Eos % (Auto) 0.0 L, Baso % (Auto) 0.1, Neut # (Auto) 19.9 H, Lymph # (Auto) 1.3, [place] # (Auto) 1.0, Eos # (Auto) 0.0, Baso # (Auto) 0.0 10/08/20 06:35: Sodium 140, Potassium 3.3 L, Chloride 105, Carbon Dioxide 29 D, Anion Gap 9.3, BUN 21 H, Creatinine 0.80, Estimated Creat Clear 49, Estimated GFR 70, Est GFR ( Amer) 85 D, Glucose 101 H, Calcium 8.9, Total Bilirubin 0.4, AST 23, ALT 8 L D, Alkaline Phosphatase 87, Total Protein 5.2 L, Albumin 2.8 L, Globulin 2.4, Albumin/Globulin Ratio 1.2 I & O for Last 24 hours: Intake & Output 10/05/20 10/06/20 10/07/20 10/08/20 23:59 23:59 23:59 23:59 Intake Total 1000 / 1000 302 / 302 2098 / 2098 Output Total 500 / 500 275 / 625 825 / 825 Balance 500 / 500 27 / -323 1273 / 1273 Weight 60.192 kg 59.874 kg 62.341 kg Microbiology Reports for the Last 24 Hours: Microbiology 10/06/20 17:25 Urine,Catheterized Urine Culture - Final Escherichia coli - Constitutional mild distress, chronically ill appearing - *Routine HEENT Exam Head: Present: normocephalic Eye: Present: EOMI, PERRL ENT: Present: mucous membranes moist - *Routine Neck Exam Present: supple. Absent: lymphadenopathy - *Routine Respiratory Exam Present: CTA bilaterally - *Routine Cardiovascular Exam Present: RRR. Absent: murmur - *Routine Abdominal Exam Present: soft, normoactive bowel sounds, tenderness (Diffuse tenderness, worse in lower abdomen on right; minimal CVA tenderness on right, no CVA tenderness on left) - *Routine Extremities Exam Absent: cyanosis, clubbing, edema - *Routine Skin Exam Present: warm. Absent: rash - *Routine Neurological Exam Present: alert, oriented X3 Assessment and Plan (1) Colitis Status: Acute Category: Medical Code(s): K52.9 - Noninfective gastroenteritis and colitis, unspecified (2) Hypokalemia Status: Acute Category: Medical Code(s): E87.6 - Hypokalemia (3) Peripheral vascular disease Status: Acute Category: Medical Code(s): I73.9 - Peripheral vascular disease, unspecified (4) Abdominal pain Status: Acute Qualifiers: Abdominal location: upper abdomen, unspecified Qualified Code(s): R10.10 - Upper abdominal pain, unspecified Category: Medical Code(s): R10.9 - Unspecified abdominal pain (5) Vomiting and diarrhea Status: Acute Category: Medical Code(s): R11.10 - Vomiting, unspecified; R19.7 - Diarrhea, unspecified (6) GERD (gastroesophageal reflux disease) Status: Acute Category: Medical Code(s): K21.9 - Gastro-esophageal reflux disease without esophagitis (7) HTN (hypertension) Status: Acute Category: Medical Code(s): I10 - Essential (primary) hypertension (8) E. coli pyelonephritis Status: Acute Category: Medical Code(s): N12 - Tubulo-interstitial nephritis, not specified as acute or chronic; B96.20 - Unspecified Escherichia coli [E. coli] as the cause of diseases classified elsewhere Based on cultur
[2020-10-08 10:48] LABS: Lymphocytes % 5 % (10-50); Neutrophils % 95 % (42-76); Platelet Estimate Normal; RBC Morphology Normal; Total Cells Counted 100
--- NOTE | 2020-10-08 17:20 | PC.NURSE ---
Alert and oriented x4. Lungs are clear, bowel sounds active x4. RLQ tenderness noted on palpation. Treated x1 with prn pain meds with patient reporting adequate relief. Lima removed today. Urine was clear and straw colored. Notified by blood bank that patient has antibodies in her blood and it will be later before units are ready. [place] noted to rle, open to air. Tolerating diet with no complaints. Will continue to monitor.
[2020-10-09] VITALS (15 sets, daily range): BP systolic 122–152; BP diastolic 61–78; PULSE 75–83; RESP 16–17; TEMP 36.5–37.1; O2SAT 94–96; BMI 25.7
--- NOTE | 2020-10-09 01:47 | PC.NURSE ---
0105 first unit of blood transfused, no s/s of transfusion reaction, no reports of new back pain, chills, dizziness, fever, flank pain, flushing of skin or difficulty breathing
--- NOTE | 2020-10-09 04:37 | PC.NURSE ---
0410 second unit of blood done transfusing, no s/s of transfusion reaction
--- NOTE | 2020-10-09 04:48 | PC.NURSE ---
shift summary, no acute changes since prior assessment, pt has received 2 units of blood this shift and tolerated transfusions well, no s/s of transfusion reaction, pt has brad in place in right leg from a prior surgery, pulse in right foot was not palpable, doppler used to find pulse, pulse is present but weak, pt has good movement of right foot and toes, systolic BP 132-152, HR 75-87, has remained afebrile, no complaints of SOA or CP
[2020-10-09 05:50] LABS: Basophils # 0.1 K/mm3 (0-0.2); Basophils % 0.3 % (0.1-2.0); Eosinophils # 0.1 K/mm3 (0.0-0.4); Eosinophils % 0.7 % (0.1-12.0); Hematocrit 32.4 % (37.0-47.0); Lymphocytes # 0.9 K/mm3 (0.7-4.5); Lymphocytes % 5.3 % (10-50); Mean Corpuscular HGB Conc 32.2 g/dL (31.8-35.4); Mean Corpuscular Hemoglobin 28.9 pg (27.0-31.2); Mean Corpuscular Volume 89.7 fl (81-99); Mean Platelet Volume 8.9 fl (7.4-10.4); Monocytes # 0.7 K/mm3 (0.1-1.0); Monocytes % 4.3 % (1.7-9.3); Neutrophils # 15.2 K/mm3 (1.8-7.8); Neutrophils % 89.4 % (37.0-80.0); Platelet Count 308 K/mm3 (142-424); Red Blood Count 3.61 M/mm3 (4.20-5.40); Red Cell Distribution Width 15.4 % (11.5-17.5)
[2020-10-09 05:52] LABS: Chloride 103 mmol/L (98-107); Potassium 3.3 mmoL/L (3.5-5.1); Sodium 137 mmol/L (136-145)
[2020-10-09 05:55] LABS: Alanine Aminotransferase 8 U/L (12-78); Albumin Level 2.7 g/dl (3.5-5.0); Albumin/Globulin Ratio 1.1 (1.1-1.8); Alkaline Phosphatase 83 U/L (38-126); Anion Gap 7.3 mEq/L (5-15); Aspartate Amino Transferase 22 U/L (14-36); Blood Urea Nitrogen 17 mg/dl (7-17); Carbon Dioxide 30 mmol/L (22.0-30.0); Creatinine Clearance Estimated 49 mL/min (50-200); Estimated Glomerular Filt Rate 98 ml/min (>60); GFR (African American) 118 ML/MIN (>60); Globulin 2.5 g/dL (1.3-3.2); Total Protein,Serum 5.2 g/dl (6.3-8.2)
[2020-10-09 05:56] LABS: Calcium 8.5 mg/dl (8.4-10.2); Glucose 100 mg/dl (74-100)
[2020-10-09 06:16] LABS: Hemoglobin 10.4 g/dL (12.2-16.2); MANUAL DIFFERENTIAL MANUAL DIFFERENTIAL (MANUAL DIFF)
--- NOTE | 2020-10-09 08:07 | HMH.DCSUM ---
General - General Admission date:: 10/06/20 Discharge date: 10/09/20 HPI HPI: he patient had revascularization surgery on her right lower extremity at [facility] 3 weeks ago for acute arterial ischemia. She developed vomiting and diarrhea, mid back and abdominal pain while in the hospital and it has never gone away. She has seen her primary care doctor and has been sent to this hospital on Wednesday 6 days ago for outpatient IV fluids. She was started on medication for urinary tract infection. She has not had fever. She denies blood in her diarrhea. She says her legs feel good since her surgery. Above note per emergency department. Patient had lower extremity arterial bypass with apparently excellent results, is scheduled for follow-up on for staple removal, has had no problems with this procedure but notes that she had low-grade abdominal pain even in the hospital at [facility] and this has accelerated since she is home with vomiting and diarrhea. Work-up in the ER noted, concerned about mesenteric ischemia but CT scan was more consistent with sigmoid colitis. Patient notes that she feels better this morning and feels thirsty and has much less nausea. Hospital Course Hospital Course: Patient was admitted, started on Invanz therapy from the emergency department. Colitis on CT scan was noted, GI was consulted, sigmoidoscopy was done, revealing a very focal area of colitis concerning for infectious versus ischemia. Levaquin and Flagyl were started. Yesterday Augmentin was started because of urinary pathogens, and patient noted marked improvement in her abdomen although still continued to be tender on exam. In consultation with Dr. Siddiqi he was concerned about infectious etiology of the colitis overlay on mesenteric ischemia and he actually discussed the case with vascular surgery at [place], Dr. Sandhu. Patient feels great today, eating well, wishes to go home. She has an appointment with Dr. Sandhu tomorrow. We will send her home on Augmentin and Flagyl, she will follow-up with Dr. Sandhu tomorrow and take her films to discuss further etiology of work-up for this colitis. Objective Vital signs: Temp Pulse Resp BP Pulse Ox 98.4 F 75 16 122/61 94 L 10/09/20 05:10 10/09/20 05:10 10/09/20 05:10 10/09/20 05:10 10/09/20 05:10 no acute distress - *Routine HEENT Exam Head: Present: normocephalic Eye: Present: EOMI, PERRL ENT: Present: mucous membranes moist - *Routine Neck Exam Present: supple - *Routine Respiratory Exam Present: CTA bilaterally - *Routine Cardiovascular Exam Present: RRR - *Routine Abdominal Exam Present: soft, normoactive bowel sounds, tenderness Comments: Focal tenderness in left lower quadrant. No masses or guarding -- improved over baseline - *Routine Extremities Exam Absent: cyanosis, clubbing, edema - *Routine Skin Exam Present: warm. Absent: rash - Detailed Eye Exam Eyelids: Bilateral normal inspection Results Labs on day of discharge: Labs from last 24 hours 10/09/20 10/09/20 10/08/20 05:35 05:35 10:07 WBC 17.0 H RBC 3.61 L D Hgb 10.4 L D Hct 32.4 L MCV 89.7 MCH 28.9 MCHC 32.2 RDW 15.4 Plt Count 308 MPV 8.9 Neut % (Auto) 89.4 H Lymph % (Auto) 5.3 L [place] % (Auto) 4.3 Eos % (Auto) 0.7 Baso % (Auto) 0.3 Neut # (Auto) 15.2 H Lymph # (Auto) 0.9 [place] # (Auto) 0.7 Eos # (Auto) 0.1 Baso # (Auto) 0.1 Total Counted Neutrophils % (Manual) Lymphocytes % (Manual) Platelet Estimate RBC Morphology Sodium 137 Potassium 3.3 L Chloride 103 Carbon Dioxide 30 Anion Gap 7.3 BUN 17 Creatinine 0.60 D Estimated Creat Clear 49 Estimated GFR 98 Est GFR ( Amer) 118 D Glucose 100 Calcium 8.5 Total Bilirubin 1.0 AST 22 ALT 8 L Alkaline Phosphatase 83 Total Protein 5.2 L Albumin 2.7 L
--- NOTE | 2020-10-09 09:39 | PC.NURSE ---
During morning assessment patients right foot was noted to have discoloration. Pulse was not palpable, attempted to doppler pulse and it was difficult to doppler. Notified immediately, order was to continue with discharge as patient has a follow up tomorrow with vascular surgery.
[2020-10-09 10:04] LABS: Lymphocytes % 6 % (10-50); Neutrophils % 94 % (42-76); Platelet Estimate Normal; Total Cells Counted 100
[2020-10-09 10:05] LABS: RBC Morphology Normal
[2020-10-11 08:39] LABS: Campylobacter Detected (NotDetected)
== END 2020-10-09 10:08 | disposition home or self-care (01) | DRG 391 ==
LOC: ER 21:01 → 2ND 22:16
PROVIDERS: Internal Medicine Adolescent Medicine; Internal Medicine Gastroenterology; Student in an Organized Health Care Education/Training Program; Admitting Provider Internal Medicine Adolescent Medicine; Emergency Provider Emergency Medicine; PCP Internal Medicine; Visit Provider Internal Medicine Adolescent Medicine
PROC: 0DJD8ZZ Inspection of Lower Intestinal Tract, Via Natural or Artificial Opening Endoscopic (ICD-10-PCS; CPT 45330; principal; 2020-10-07 15:00)
DX: K52.9 Noninfective gastroenteritis and colitis, unspecified (principal); K55.039 Acute (reversible) ischemia of large intestine, extent unspecified; N12 Tubulo-interstitial nephritis, not specified as acute or chronic; I77.4 Celiac artery compression syndrome; E87.6 Hypokalemia; K55.20 Angiodysplasia of colon without hemorrhage; Z95.820 Peripheral vascular angioplasty status with implants and grafts; I70.209 Unspecified atherosclerosis of native arteries of extremities, unspecified extremity; D64.9 Anemia, unspecified; I10 Essential (primary) hypertension; Z79.01 Long term (current) use of anticoagulants; Z79.82 Long term (current) use of aspirin; Z79.899 Other long term (current) drug therapy; Z86.010 Personal history of colon polyps; B96.20 Unspecified Escherichia coli [E. coli] as the cause of diseases classified elsewhere
CPT/HCPCS: 45380; 36415; 74174; 80048; 80053; 81001; 82150; 82272; 83605; 83690; 84132; 84484; 85007; 85025; 86328; 86850; 86870; 87040; 87086; 87088; 87186; 87507; 88305; 93005; 96365; 96375; 96376; 99285; G0328; J1335; J2405; P9016; Q9967

== ENCOUNTER 2020-11-03 14:21 | Emergency (ER) | payer OTHER, MEDICARE, SELFPAY ==
[2020-11-03 14:21] VITALS: BP 101/65; PULSE 114; RESP 20; TEMP 36.6; O2SAT 98; BMI 19.5
--- NOTE | 2020-11-03 14:27 | HMH.EDGENADL ---
ED Disposition Clinical Impression: Ischemic colitis Disposition: Home Health Service Condition on Discharge: Fair Instructions: DI for Acute Pain -- Adult Additional Instructions: Please follow-up with hospice as coordinated. Continue taking medications as prescribed. If worsening pain or new issues please reach out to hospice team. Referrals: Jackson Jimenez [Primary Care Provider] - - Critical Care Critical Care Time: No Attestation: On 11/03/20, the high probability of a clinically significant, sudden or life threatening deterioration of the following system(s) required my full and direct attention, intervention and personal management. The time I documented below is in addition to time spent performing reported procedures but includes the following listed in this critical care notation. Medical Decision Making - Medical Records Medical records reviewed: Yes: I reviewed the patient's medical records. - Apolinar Inquiry Pt receiving controlled substance: Yes (IV Morphine for pain control) Apolinar was queried for this patient: No Reason not queried -: Emergent pt cond-no time Risks and benefits of using a controlled substance: were discussed with pt by me Vital Signs: 11/03/20 14:21 11/03/20 14:37 11/03/20 16:00 Temperature 97.8 F Temperature Source Rectal Pulse Rate [Right Radial] 114 H 114 H 102 H Respiratory Rate 20 Blood Pressure [Right Arm] 101/65 L 122/76 91/68 L Blood Pressure Mean [Right Arm] 77 91 75 Blood Pressure Source [Right Arm] Automatic Cuff Automatic Cuff Blood Pressure Position [Right Arm] Sitting Sitting 02 Sat by Pulse Oximetry 98 98 99 Oxygen Delivery Method Room Air Room Air Orders (Tests/Meds): ED MEDICATIONS Discontinued Medications Generic Name Dose Route Start Last Admin Trade Name Carmel PRN Reason Stop Dose Admin Hydromorphone HCl 1 mg 11/03/20 16:24 11/03/20 16:26 Hydromorphone 2mg/Ml Syringe IV 11/03/20 16:25 1 mg ONCE ONE Administration Lactated Ringer's 1,000 mls @ 999 mls/hr 11/03/20 14:30 11/03/20 15:21 Lactated Ringer's 1000 Ml Bag IV 11/03/20 15:30 999 mls/hr .Q1H1M SATNAM Administration Morphine Sulfate 4 mg 11/03/20 15:19 11/03/20 15:20 Morphine 4mg/Ml Syringe IV 12/13/20 15:20 4 mg ONCE ONE Administration Morphine Sulfate 2 mg 11/03/20 16:05 11/03/20 16:24 Morphine 2mg/Ml Syringe IV 11/03/20 16:06 Not Given ONCE ONE Ondansetron HCl 4 mg 11/03/20 15:19 11/03/20 15:20 Ondansetron 4mg/2ml Vial IV 11/03/20 15:20 4 mg ONCE ONE Administration Medical Decision Narrative: Patient presents to the emergency department with acute on chronic pain. I did reach out to on-call nurse for hospice and discussed this case in detail. To hospice his nurse understanding patient was placed on hospice due to her peripheral artery disease that cannot be surgically intervened on for comfort care measures. Daughter believes patient is on hospice only until she is strong enough to have surgery. I was able to reach out to patient's primary care doctor to confirm that patient recently was worked up at [facility] by vascular surgery and was deemed not fit for surgery as her disease is too extensive and she has 2 many medical comorbidities. At this time, I share this news with both patient and daughter at bedside and they do appear to understand. She does take p.o. morphine and Xarelto. I instructed them to continue taking medications as prescribed. She was given a dose of IV morphine, dilaudid, and Zofran here in the emergency department. I was able to reach back out to hospice to discuss patient's care to get as many resources available to make patient comfortable. PO pain meds are not alleviate pain meds so an infusion pump for IV narcotics may be more appropriate in this case. Hospice nurse will coordinate care. Patient discharged in somewhat improved condition but still does have some baseline pain. Again, she will co
[2020-11-03 14:37] VITALS: BP 122/76; PULSE 114; O2SAT 98
--- NOTE | 2020-11-03 15:17 | PC.NURSE ---
VICENTE BEAR speaking with Dr. Jimenez
[2020-11-03 16:00] VITALS: BP 91/68; PULSE 102; O2SAT 99
[2020-11-03 17:13] VITALS: BP 97/58; PULSE 80; RESP 20; TEMP 36.6; O2SAT 98
== END 2020-11-03 17:15 | disposition home health service (06) ==
PROVIDERS: Emergency Provider Emergency Medicine; PCP Internal Medicine
DX: K55.9 Vascular disorder of intestine, unspecified (principal); I25.10 Atherosclerotic heart disease of native coronary artery without angina pectoris; I10 Essential (primary) hypertension; J44.9 Chronic obstructive pulmonary disease, unspecified; K21.9 Gastro-esophageal reflux disease without esophagitis; E11.9 Type 2 diabetes mellitus without complications; I73.9 Peripheral vascular disease, unspecified; Z79.01 Long term (current) use of anticoagulants; Z87.891 Personal history of nicotine dependence; Z90.710 Acquired absence of both cervix and uterus; Z98.84 Bariatric surgery status
CPT/HCPCS: 96365; 96375; 96376; 99282; J2405